=== PATIENT | female | born 1960 | race Caucasian/White ===

== ENCOUNTER 2017-12-10 12:38 | Emergency (ER) | payer OTHER ==
[2017-12-10] MEDS: ACETAMINOPHEN 325 MG TAB PO (16:51)
[2017-12-10] MEDS: CEFTRIAXONE 1 GM/50 ML (PMX) 50 ML IVPB (16:52)
[2017-12-10] MEDS: SODIUM CHLORIDE 0.9% 1L BAG IV* (16:52)
[2017-12-10 17:13] LABS: ADD MAN DIFF? NO
[2017-12-10 17:18] LABS: ABNORMAL IP MESSAGE 1; BASOPHILS % 0.2 % (0.0-2.0); HEMATOCRIT 45.7 % (37.0-47.0); HEMOGLOBIN 15.3 g/dl (12.0-16.0); LYMPHOCYTES # 0.9 10^3/ul (0.8-2.9); LYMPHOCYTES % 6.3 % (15.0-51.0); MEAN CORPUSCULAR HEMOGLOBIN 34.5 pg (29.0-33.0); MEAN CORPUSCULAR HGB CONC 33.5 g/dl (32.0-37.0); MEAN CORPUSCULAR VOLUME 102.9 fl (82.0-101.0); MEAN PLATELET VOLUME 12.1 fl (7.4-10.4); MONOCYTE # 0.7 10^3/ul (0.3-0.9); MONOCYTES % 5.2 % (0.0-11.0); NEUTROPHIL # 12.4 10^3/ul (1.6-7.5); NEUTROPHILS % 87.3 % (39.0-77.0); PLATELET COUNT 97 10^3/UL (140-415); RED BLOOD COUNT 4.44 10^6/ul (4.20-5.40); RED CELL DISTRIBUTION WIDTH 12.4 % (11.5-14.5)
[2017-12-10 17:18] LABS: WHITE BLOOD COUNT 14.2 10^3/ul (4.8-10.8)
[2017-12-10 17:20] LABS: POSITIVE DIFF @See below
[2017-12-10] MEDS: PIPER-TAZO 3.375 GM IV (PMX) 100 ML IVPB (17:22)
[2017-12-10 17:37] LABS: ALANINE AMINOTRANSFERASE 106 IU/L (13-69); ALBUMIN 4.5 g/dl (3.3-4.9); ALBUMIN/GLOBULIN RATIO 0.95; ALKALINE PHOSPHATASE 124 IU/L (42-121); ANION GAP 17 (8-16); ASPARTATE AMINO TRANSFERASE 100 IU/L (15-46); BILIRUBIN,INDIRECT 1.4 mg/dl (0-1.1); BILIRUBIN,TOTAL 1.4 mg/dl (0.2-1.3); BLOOD UREA NITROGEN 17 mg/dl (7-20); CALCIUM 9.5 mg/dl (8.4-10.2); CARBON DIOXIDE 26 mmol/L (21-31); CHLORIDE 99 mmol/L (97-110); CREATININE 0.98 mg/dl (0.44-1.00); GLUCOSE 117 mg/dl (70-220); LIPASE 56 U/L (23-300); POTASSIUM 4.3 mmol/L (3.5-5.1); SODIUM 138 mmol/L (135-144); TOTAL PROTEIN 9.2 g/dl (6.1-8.1)
[2017-12-10 17:47] LABS: PARTIAL THROMBOPLASTIN TIME 28.4 Sec (25.0-35.0); PROTIME 14.4 Sec (11.9-14.9); PT RATIO 1.1
[2017-12-10 17:49] LABS: LACTIC ACID 2.1 mmol/L (0.5-2.0)
[2017-12-10 17:49] LABS: TROPONIN-I < 0.012 ng/ml (0.00-0.12)
[2017-12-10] MEDS: VANCOMYCIN 1 GM (PMX) 250 ML IVPB (18:13)
[2017-12-10 20:22] LABS: LACTIC ACID 0.8 mmol/L (0.5-2.0)
== END 2017-12-10 21:26 | disposition short-term general hospital (02) ==
LOC: E/R 21:26
DX: A41.9 Sepsis, unspecified organism (principal); L03.115 Cellulitis of right lower limb; F15.10 Other stimulant abuse, uncomplicated; J45.909 Unspecified asthma, uncomplicated; Z87.891 Personal history of nicotine dependence
CPT/HCPCS: 36415; 71045; 73560; 80053; 83605; 83690; 84484; 85025; 85610; 85730; 87040; 93005; 93970; 96374; 96375; 99291-25

== ENCOUNTER 2017-12-23 02:31 | Emergency (ER) | payer OTHER ==
[2017-12-23] MEDS: IBUPROFEN 600 MG TAB PO (06:40)
[2017-12-23] MEDS ORDERED: IBUPROFEN 600 MG TAB PO (07:00)
== END 2017-12-23 06:53 | disposition home or self-care (01) ==
LOC: FTE 02:31
DX: L03.115 Cellulitis of right lower limb (principal); J45.909 Unspecified asthma, uncomplicated; F17.210 Nicotine dependence, cigarettes, uncomplicated; Z85.831 Personal history of malignant neoplasm of soft tissue
CPT/HCPCS: 99283; Z7610

== ENCOUNTER 2018-06-03 18:40 | Emergency (ER) | payer OTHER ==
[2018-06-03] MEDS: HYDROCODONE/APAP (5/325) TAB PO (22:10)
== END 2018-06-03 23:26 | disposition home or self-care (01) ==
LOC: FTE 18:40
DX: S42.202A Unspecified fracture of upper end of left humerus, initial encounter for closed fracture (principal); S80.02XA Contusion of left knee, initial encounter; J45.909 Unspecified asthma, uncomplicated; F17.210 Nicotine dependence, cigarettes, uncomplicated; W01.0XXA Fall on same level from slipping, tripping and stumbling without subsequent striking against object, initial encounter; Y92.9 Unspecified place or not applicable
CPT/HCPCS: 73000; 73030; 73562; 99284-25